=== PATIENT | female | born 2005 | race Caucasian/White ===

== ENCOUNTER 2025-05-22 15:21 | Outpatient (CLI) | payer OTHER ==
[2025-05-22 16:26] LABS: BHCG - Serum Negative (NEGATIVE); Pregs Control Background? CLEAR/WHITE (CLR/WHITE); Pregs Control Bar Appear? YES (CONTROL BAR)
== END 2025-05-22 15:22 | disposition home or self-care (01) ==
LOC: LABBT 15:21
PROVIDERS: ATTEND Orthopaedic Surgery
DX: Z01.812 Encounter for preprocedural laboratory examination (principal); S60.552A Superficial foreign body of left hand, initial encounter
CPT/HCPCS: 83036; 84703

== ENCOUNTER 2025-05-24 08:22 | Day surgery (SDC) | payer OTHER ==
[2025-05-22 16:35] VITALS: BMI 23.6
[2025-05-24] MEDS ORDERED: fentaNYL PF 100 MCG/2 ML SYRINGE ONE (09:27)
[2025-05-24] MEDS ORDERED: PROPOFOL 20 ML ONE (09:27)
[2025-05-24] MEDS ORDERED: Lidocaine 1% PF 5 ML VIAL ONE (09:28)
[2025-05-24] MEDS ORDERED: CEFAZOLIN 2 GM VIAL ONE (10:04)
[2025-05-24] MEDS ORDERED: Ketorolac Tromethamine 30 MG (1 mL) VIAL ONE (10:04)
[2025-05-24] MEDS ORDERED: Ondansetron PF 4 MG/2 ML Vial ONE (10:04)
[2025-05-24] MEDS ORDERED: CEFAZOLIN 1 GM VIAL ONE (10:13)
== END 2025-05-24 13:47 | disposition home or self-care (01) ==
LOC: SDC 08:22
PROVIDERS: ATTEND Orthopaedic Surgery
PROC: 0JCK0ZZ Extirpation of Matter from Left Hand Subcutaneous Tissue and Fascia, Open Approach (ICD-10-PCS; principal; 2025-05-24)
DX: S61.442A Puncture wound with foreign body of left hand, initial encounter (principal); W25.XXXA Contact with sharp glass, initial encounter
CPT/HCPCS: A6223; J0665; J0690; J1100; J1885; J2704; J3010